=== PATIENT | male | born 1930 | race Hispanic/Latino ===

== ENCOUNTER 2020-10-29 04:54 | Emergency (ER) | payer MEDICARE ==
[~2020-10-29] VITALS: Ht 162.6 cm; Wt 63.5 kg
[2020-10-29 05:09] VITALS: BP 132/81
== END 2020-10-29 08:28 ==
LOC: EDH 04:54
DX: R45.6 Violent behavior (principal)

== ENCOUNTER 2020-12-02 21:14 | Emergency (ER) | payer MEDICARE ==
[~2020-12-02] VITALS: Ht 160 cm; Wt 56.2 kg
[2020-12-03 00:02] VITALS: BP 112/54
== END 2020-12-03 02:21 ==
LOC: EDH 21:14
DX: F03.91 Unspecified dementia, unspecified severity, with behavioral disturbance (principal); J44.9 Chronic obstructive pulmonary disease, unspecified; E11.9 Type 2 diabetes mellitus without complications; K21.9 Gastro-esophageal reflux disease without esophagitis; E78.00 Pure hypercholesterolemia, unspecified; I10 Essential (primary) hypertension; Z98.890 Other specified postprocedural states